=== PATIENT | female | born 1945 | race African-American/Black ===

== ENCOUNTER → 2016-06-29 14:35 | Emergency (ER) | payer MEDICARE, BC | END | disposition home or self-care (01) | LOC: CED 14:35 | DX: N64.4 Mastodynia (principal); E11.9 Type 2 diabetes mellitus without complications; I10 Essential (primary) hypertension; N28.9 Disorder of kidney and ureter, unspecified; Z88.8 Allergy status to other drugs, medicaments and biological substances | CPT/HCPCS: 99283 ==